=== PATIENT | female | born 1945 | race Caucasian/White ===

== ENCOUNTER 2024-01-25 05:56 | Inpatient (IN) | payer MEDICARE, OTHER ==
[~2024-01-25] VITALS: Ht 162.6 cm; Wt 67.1 kg
[2024-01-25] VITALS (7 sets, daily range): BP systolic 123–138; BP diastolic 48–75; TEMP 97.3–97.8; O2SAT 95–99
[2024-01-25] MEDS ORDERED: dexaMETHasone SOD PHOSPHATE 2 ML ONE (07:13)
[2024-01-25] MEDS ORDERED: LIDOCAINE 2%-EPI 1:100,000 30 ML VIAL ONE (07:13)
[2024-01-25] MEDS ORDERED: ANESTHESIA TRAY IN PYXIS 1 EA TRAY MC ONE (07:13)
[2024-01-25] MEDS ORDERED: VANCOMYCIN 1 GM VIAL ONE (07:14)
[2024-01-25] MEDS ORDERED: OXYMETAZOLINE HCL NASAL SPRAY 30 ML BOTTLE NS ONE (07:14)
[2024-01-25] MEDS ORDERED: ALBUTEROL SULFATE 8 GM HFA.AER.AD ONE (07:20)
[2024-01-25] MEDS ORDERED: FENTANYL PF 100MCG/2ML AMPUL ONE (07:21)
[2024-01-25] MEDS ORDERED: KETAMINE HCL (500MG/10ML) 50 MG/ML VIAL ONE (07:21)
[2024-01-25] MEDS ORDERED: Magnesium 1 GM/2 ML VIAL ONE (07:21)
[2024-01-25] MEDS ORDERED: LIDOCAINE 2% JEL UROJET 10 ML MM ONE (07:22)
[2024-01-25] MEDS ORDERED: FAMOTIDINE/PF INJ 20 MG/2 ML VIAL IV ONE (07:22)
[2024-01-25] MEDS ORDERED: ROCURONIUM BROMIDE 50 MG/5 ML ONE (07:22)
[2024-01-25] MEDS ORDERED: HYDROMORPHONE 1 MG/1 ML DISP.SYRIN IV PRN (10:00)
[2024-01-25] MEDS ORDERED: ACETAMINOPHEN 325 MG TABLET PO PRN ×2 (10:00→12:00)
[2024-01-25] MEDS: ONDANSETRON HCL/PF 4 MG/2 ML VIAL IV PRN (10:33)
[2024-01-25] MEDS ORDERED: MELO-105 PO (11:20)
[2024-01-25] MEDS ORDERED: MONT10TA22 PO (11:20)
[2024-01-25] MEDS ORDERED: DICL100G34 TP (11:20)
[2024-01-25] MEDS ORDERED: CARB15DR2 EACHEYE (11:20)
[2024-01-25] MEDS ORDERED: FLUT1BLS IH (11:20)
[2024-01-25] MEDS ORDERED: PITA2TAB PO (11:20)
[2024-01-25] MEDS ORDERED: OMEG1200 PO (11:20)
[2024-01-25] MEDS ORDERED: DIGE1TAB PO (11:20)
[2024-01-25] MEDS ORDERED: CYAN-51 PO (11:20)
[2024-01-25] MEDS ORDERED: NEBI5TAB8 PO (11:20)
[2024-01-25] MEDS ORDERED: ASPI-1169 PO (11:20)
[2024-01-25] MEDS ORDERED: CHOL200026 PO (11:20)
[2024-01-25] MEDS ORDERED: OMEP40CA21 PO (11:20)
[2024-01-25] MEDS ORDERED: CLON1TAB PO (11:20)
[2024-01-25] MEDS ORDERED: [UNRECOGNIZED DRUG - OTHER] EACHEYE (11:20)
[2024-01-25] MEDS ORDERED: MELA3TAB41 PO (11:20)
[2024-01-25] MEDS ORDERED: MAGN250T10 PO (11:20)
[2024-01-25] MEDS ORDERED: ZINC50TA69 PO (11:20)
[2024-01-25] MEDS ORDERED: PRAM0.253 PO (11:20)
[2024-01-25] MEDS ORDERED: AMLO5TAB4 PO (11:20)
[2024-01-25] MEDS ORDERED: LACT1CAP73 PO (11:20)
[2024-01-25] MEDS ORDERED: UBID200C18 PO (11:20)
[2024-01-25] MEDS ORDERED: TERB250T53 PO (11:20)
[2024-01-25] MEDS ORDERED: [UNRECOGNIZED DRUG - CODE] PO (11:20)
[2024-01-25] MEDS ORDERED: HYDR12.55 PO (11:20)
[2024-01-25] MEDS ORDERED: ZOLP5TAB2 PO (11:20)
[2024-01-25] MEDS ORDERED: ASCO100058 PO (11:20)
[2024-01-25] MEDS ORDERED: ALBU8.5H8 IH (11:20)
[2024-01-25] MEDS ORDERED: CLOB15CR5 TP (11:20)
[2024-01-25] MEDS ORDERED: MILK175T2 PO (11:20)
[2024-01-25] MEDS ORDERED: ESCI10TA PO (11:20)
[2024-01-25] MEDS ORDERED: FLUT16SP16 BNOSTRILS (11:20)
[2024-01-25] MEDS: HYDROCODONE/APAP 10/325MG TABLET PO PRN (12:19)
[2024-01-25] MEDS: IV NS 0.9% 1,000 ML IV PRN (18:50)
[2024-01-25] MEDS ORDERED: FLUTICASONE PROPIONATE 16 GM BOTTLE NS PRN (19:30)
[2024-01-25] MEDS: VANCOMYCIN 1 GM in IV D5W 250ml IV SCH (19:46)
[2024-01-25] MEDS: METOPROLOL TARTRATE 25 MG TABLET PO SCH (21:45)
[2024-01-25] MEDS: MONTELUKAST SODIUM (10MG) 10 MG TABLET PO SCH (21:46)
[2024-01-25] MEDS ORDERED: MONTELUKAST SODIUM (10MG) 10 MG TABLET PO SCH (22:00)
[2024-01-25] MEDS: ZOLPIDEM TARTRATE 5 MG TABLET PO SCH (23:13)
[2024-01-26] MEDS: ALBUTEROL FS 2.5 MG/3 ML VIAL.NEB NEB SCH (02:18)
[2024-01-26 07:56] LABS: BASOPHILS % (AUTO) 0.1 % (0.0-2.0); HEMATOCRIT 33 % (33-45); HEMOGLOBIN 10.9 g/dL (11.5-14.8); LYMPHOCYTES # (AUTO) 1.1 K/uL (0.8-4.8); LYMPHOCYTES % (AUTO) 6.9 % (20.0-44.0); MEAN CORPUSCULAR HEMOGLOBIN 31 PG (26.0-33.0); MEAN CORPUSCULAR HGB CONC 34 g/dl (31.0-36.0); MEAN CORPUSCULAR VOLUME 91 fL (82-100); MONOCYTES # (AUTO) 0.9 K/uL (0.1-1.30); MONOCYTES % (AUTO) 5.4 % (2.0-12.0); NEUTROPHILS # (AUTO) 14.7 K/uL (1.8-8.9); NEUTROPHILS % (AUTO) 87.6 % (43.0-81.0); PLATELET COUNT (AUTO) 221 K/uL (150-450); RED BLOOD CELL COUNT(AUTO) 3.57 MIL/uL (4.0-5.2); RED CELL DISTRIBUTION WIDTH 13.5 % (11.5-15.0); WHITE BLOOD COUNT (AUTO) 16.8 K/uL (4.3-11.0)
[2024-01-26 08:00] VITALS: BP 122/67; TEMP 97.9; O2SAT 95
[2024-01-26 08:10] VITALS: O2SAT 99
[2024-01-26] MEDS: BUDESONIDE RESPULE INH 0.5 MG/2 ML AMPUL.NEB NEB SCH (08:10)
[2024-01-26 08:14] LABS: CALCIUM, SERUM 8.9 mg/dL (8.5-10.1); CARBON DIOXIDE 21 mmol/L (21-32); CHLORIDE 99 mmol/L (98-107); CREATININE 0.8 mg/dL (0.6-1.3); GLUCOSE 113 mg/dL (74-106); SODIUM SERUM 135 mmol/L (136-145); UREA NITROGEN, BLOOD 14 mg/dL (7-18)
[2024-01-26 08:26] VITALS: O2SAT 100
[2024-01-26] MEDS: LACTOBACILLUS RHAMNOSUS GG 1 EACH CAP.SPRINK PO SCH (08:56)
[2024-01-26] MEDS: POLYVINYL ALCOHOL/POVIDONE 0.4 ML DROPERETTE EACHEYE SCH (08:56)
[2024-01-26] MEDS: clonazePAM 1 MG TABLET PO SCH (08:57)
[2024-01-26] MEDS: PRAMIPEXOLE DI-HCL 0.25 MG TABLET PO SCH (08:57)
[2024-01-26] MEDS: CYANOCOBALAMIN 500 MCG TABLET PO SCH (08:57)
[2024-01-26] MEDS: CHOLECALCIFEROL 1,000 UNIT TABLET (VIT D3) PO SCH (08:57)
[2024-01-26] MEDS: MELOXICAM 7.5 MG TABLET PO SCH (08:57)
[2024-01-26] MEDS: PANTOPRAZOLE 40 MG TABLET.DR PO SCH (08:58)
[2024-01-26] MEDS: ASPIRIN 81 MG TAB.CHEW PO SCH (08:58)
[2024-01-26] MEDS: ASCORBIC ACID 500 MG TABLET PO SCH (08:58)
[2024-01-26] MEDS: ATORVASTATIN 10 MG TABLET PO SCH (08:58)
[2024-01-26] MEDS: ESCITALOPRAM OXALATE (10 MG) 10 MG TABLET PO SCH (08:58)
[2024-01-26] MEDS: METOPROLOL TARTRATE 25 MG TABLET PO SCH (08:59)
[2024-01-26 09:00] VITALS: BP 122/67
[2024-01-26] MEDS: HYDROCHLOROTHIAZIDE 25 MG TABLET PO SCH (09:00)
[2024-01-26] MEDS ORDERED: TERBINAFINE HCL 250 MG TABLET PO SCH ×2 (09:00)
[2024-01-26] MEDS ORDERED: OMEGA PO SCH (09:00)
[2024-01-26] MEDS ORDERED: Medication Not On Formulary EA (Ubidecarenone (Co Q-10) 100 MG) PO SCH (09:00)
[2024-01-26] MEDS ORDERED: FISH OIL PO SCH (09:00)
[2024-01-26] MEDS: AMLODIPINE BESYLATE 5 MG TABLET PO SCH (09:00)
[2024-01-26] MEDS ORDERED: EPA PO SCH (09:00)
[2024-01-26] MEDS ORDERED: DICLOFENAC TOPICAL 100 GM TUBE TP PRN (09:00)
[2024-01-26] MEDS ORDERED: [UNRECOGNIZED DRUG - OTHER] PO SCH (09:00)
[2024-01-26] MEDS ORDERED: DHA PO SCH (09:00)
[2024-01-26] MEDS ORDERED: ALBUTEROL SULFATE 8 GM HFA.AER.AD IH SCH (09:00)
== END 2024-01-26 10:45 | disposition home or self-care (01) | DRG 908 ==
LOC: DS 05:56 → MED 09:47
PROVIDERS: ADMIT Nurse Practitioner Acute Care; ATTEND Nurse Practitioner Acute Care
PROC: 0NHR04Z Insertion of Internal Fixation Device into Maxilla, Open Approach (ICD-10-PCS; principal; 2024-01-25)
PROC: 0NUT07Z Supplement Right Mandible with Autologous Tissue Substitute, Open Approach (ICD-10-PCS; principal; 2024-01-25)
PROC: 0NBR0ZX Excision of Maxilla, Open Approach, Diagnostic (ICD-10-PCS; principal; 2024-01-25)
PROC: 0NBT0ZX Excision of Right Mandible, Open Approach, Diagnostic (ICD-10-PCS; principal; 2024-01-25)
PROC: 0NUT0JZ Supplement Right Mandible with Synthetic Substitute, Open Approach (ICD-10-PCS; principal; 2024-01-25)
DX: T86.831 Bone graft failure (principal); S02.40DK Maxillary fracture, left side, subsequent encounter for fracture with nonunion; S02.609K Fracture of mandible, unspecified, subsequent encounter for fracture with nonunion; X58.XXXD Exposure to other specified factors, subsequent encounter; D16.4 Benign neoplasm of bones of skull and face; D16.5 Benign neoplasm of lower jaw bone; M27.2 Inflammatory conditions of jaws; E78.5 Hyperlipidemia, unspecified; I10 Essential (primary) hypertension; M19.90 Unspecified osteoarthritis, unspecified site; L30.9 Dermatitis, unspecified; Y83.2 Surgical operation with anastomosis, bypass or graft as the cause of abnormal reaction of the patient, or of later complication, without mention of misadventure at the time of the procedure; Y92.89 Other specified places as the place of occurrence of the external cause
CPT/HCPCS: 36415; 80048-TC; 85025-TC; 87081-TC; 88305-TC; 88311-TC; 88312-TC; 94760-TC; 94799-TC; A4223; C1713; G0378; J1100; J2405; J2704; J3010; J3370; J3475; J3490; J7030; J7042; J7060

== ENCOUNTER 2024-07-04 08:49 | Inpatient (IN) | payer MEDICARE, OTHER ==
[~2024-07-04 08:49] MED LIST: ALBU8.5H8 IH; AMLO5TAB4 PO; ASCO100058 PO; ASPI-1169 PO; CARB15DR2 EACHEYE; CHOL200026 PO; CLOB15CR5 TP; CLON1TAB PO; CYAN-51 PO; DICL100G34 TP; DIGE1TAB PO; ESCI10TA PO; FLUT16SP16 BNOSTRILS; FLUT1BLS IH; HYDR12.55 PO; LACT1CAP73 PO; MAGN250T10 PO; MELA3TAB41 PO; MELO-105 PO; MILK175T2 PO; MONT10TA22 PO; NEBI5TAB8 PO; OMEG1200 PO; OMEP40CA21 PO; PITA2TAB PO; PRAM0.253 PO; TERB250T53 PO; UBID200C18 PO; ZINC50TA69 PO; ZOLP5TAB2 PO; [UNRECOGNIZED DRUG - CODE] PO; [UNRECOGNIZED DRUG - OTHER] EACHEYE
[2024-07-04] MEDS ORDERED: FENTANYL PF 100MCG/2ML AMPUL ONE (12:16)
[2024-07-04] MEDS ORDERED: MIDAZOLAM HCL 2 MG/2ML VIAL ONE (12:16)
[2024-07-04] MEDS ORDERED: ALBUTEROL SULFATE 8 GM HFA.AER.AD ONE (12:16)
[2024-07-04] MEDS ORDERED: FAMOTIDINE/PF INJ 20 MG/2 ML VIAL IV ONE (12:17)
[2024-07-04] MEDS ORDERED: ROCURONIUM BROMIDE 50 MG/5 ML ONE (12:17)
[2024-07-04] MEDS ORDERED: OXYMETAZOLINE HCL NASAL SPRAY 30 ML BOTTLE NS ONE (12:17)
[2024-07-04] MEDS ORDERED: LIDOCAINE 2% JEL UROJET 10 ML MM ONE (12:17)
[2024-07-04] MEDS ORDERED: LIDOCAINE 2%-EPI 1:100,000 30 ML VIAL ONE (12:18)
[2024-07-04] MEDS ORDERED: dexaMETHasone SOD PHOSPHATE 1 ML ONE (12:18)
[2024-07-04] MEDS ORDERED: VANCOMYCIN 1 GM VIAL ONE (12:32)
[2024-07-04] MEDS ORDERED: ONDANSETRON HCL/PF 4 MG/2 ML VIAL IV PRN (15:00)
[2024-07-04] MEDS ORDERED: ACETAMINOPHEN 325 MG TABLET PO PRN (15:00)
[2024-07-04] MEDS ORDERED: HYDROMORPHONE 1 MG/1 ML DISP.SYRIN IV PRN (15:00)
[2024-07-04 16:00] VITALS: BP 135/76; TEMP 98.9; O2SAT 92
[2024-07-04 20:00] VITALS: BP 141/64; TEMP 97.5; O2SAT 95
[2024-07-05] MEDS: VANCOMYCIN 1 GM in IV D5W 250ml IV SCH (00:06)
[2024-07-05] MEDS: IV NS 0.9% 1,000 ML IV PRN (00:06)
[2024-07-05] MEDS: ZOLPIDEM TARTRATE 5 MG TABLET PO ONE (01:06)
[2024-07-05 08:00] VITALS: BP 126/60; TEMP 98.2; O2SAT 98
== END 2024-07-05 11:00 | disposition left against medical advice (07) | DRG 908 ==
LOC: DS 08:49 → MED 15:17
PROVIDERS: ADMIT Internal Medicine; ATTEND Internal Medicine
PROC: 0NPW04Z Removal of Internal Fixation Device from Facial Bone, Open Approach (ICD-10-PCS; principal; 2024-07-04)
PROC: 0N5T0ZZ Destruction of Right Mandible, Open Approach (ICD-10-PCS; 2024-07-04)
PROC: 0NST04Z Reposition Right Mandible with Internal Fixation Device, Open Approach (ICD-10-PCS; 2024-07-04)
PROC: 0WB30ZZ Excision of Oral Cavity and Throat, Open Approach (ICD-10-PCS; 2024-07-04)
PROC: 0N5R0ZZ Destruction of Maxilla, Open Approach (ICD-10-PCS; 2024-07-04)
DX: T86.831 Bone graft failure (principal); T84.69XA Infection and inflammatory reaction due to internal fixation device of other site, initial encounter; T85.79XA Infection and inflammatory reaction due to other internal prosthetic devices, implants and grafts, initial encounter; E78.5 Hyperlipidemia, unspecified; I10 Essential (primary) hypertension; J45.909 Unspecified asthma, uncomplicated; Y83.2 Surgical operation with anastomosis, bypass or graft as the cause of abnormal reaction of the patient, or of later complication, without mention of misadventure at the time of the procedure; K13.79 Other lesions of oral mucosa; Y72.8 Miscellaneous otorhinolaryngological devices associated with adverse incidents, not elsewhere classified; Y92.009 Unspecified place in unspecified non-institutional (private) residence as the place of occurrence of the external cause
CPT/HCPCS: A4223; A4338; G0378; J1100; J2250; J2405; J2704; J3010; J3370; J3490; J7030; J7060